=== PATIENT | female | born 1995 | race African-American/Black ===

== ENCOUNTER 2021-12-29 10:52 | Emergency (ER) | payer SELFPAY ==
[~2021-12-29] VITALS: Ht 162.6 cm; Wt 119.0 kg
[2021-12-29] MEDS ORDERED: CLOT1CRE56 TOP (11:29)
[2021-12-29 12:08] VITALS: BP 112/76
== END 2021-12-29 12:11 | disposition home or self-care (01) ==
LOC: ER 10:52
DX: B36.9 Superficial mycosis, unspecified (principal)

== ENCOUNTER 2023-08-10 20:28 | Emergency (ER) | payer MEDICAID, OTHER ==
[~2023-08-10] VITALS: Ht 160 cm; Wt 127.0 kg
[~2023-08-10 20:28] MED LIST: CLOT1CRE56 TOP
[2023-08-10 23:33] LABS: Basophils # (auto) 0 10 ^3/uL (0-0.2); Basophils % (auto) 0.4 % (0.0-2.0); Eosinophils # (auto) 0 10 ^3/uL (0-0.8); Eosinophils % (auto) 0.2 % (0.0-7.0); Hematocrit 40.3 % (36.0-46.0); Hemoglobin 13.5 g/dL (12.2-16.2); Lymphocytes # (auto) 1.4 10 ^3/uL (0.4-5.4); Lymphocytes % (auto) 13.1 % (10.0-50.0); Mean Corpuscular Hgb Conc. 33.5 g/dL (32.0-36.0); Mean Corpuscular Volume 80.6 fL (80.0-100.0); Monocytes # (auto) 0.2 10 ^3/uL (0-1.3); Neutrophils # (auto) 8.7 10 ^3/uL (1.6-8.6); Neutrophils % (auto) 84.3 % (37.0-80.0); Nucleated Red Blood Cells % 0.1 %; Red Blood Cells 4.99 10^6/uL (4.0-5.20); Red Cell Distribution Width 14.6 % (11.8-14.3); White Blood Cell 10.4 10^3/uL (4.4-10.8)
[2023-08-10 23:47] LABS: Alanine Aminotransferase 19 U/L (7-40); Alkaline Phosphatase 98 U/L (46-116); Anion Gap 13 (5-15); Aspartate Aminotransferase 14 U/L (13-40); Bilirubin, Total 0.4 mg/dL (0.2-1.0); Blood Urea Nitrogen 6 mg/dL (9-23); Calcium 10.2 mg/dL (8.7-10.4); Carbon Dioxide 18 mmol/L (20-30); Chloride 109 mmol/L (98-107); Glucose 137 mg/dL (74-106); Lipase 38 U/L (12-53); Potassium 3.8 mmol/L (3.5-5.1); Sodium 140 mmol/L (136-145); Total Protein 8.6 g/dL (5.7-8.2)
[2023-08-11 00:32] VITALS: TEMP 97.5
[2023-08-11] MEDS ORDERED: ZOFR4T PO (00:32)
[2023-08-11] MEDS: MORPHINE SULFATE 4 MG/ML SYR/VIAL IM ONE (00:50)
[2023-08-11] MEDS: ONDANSETRON ODT 4 MG TAB PO ONE (00:50)
[2023-08-11 01:07] VITALS: O2SAT 100
[2023-08-11 01:46] VITALS: BP 151/63; PULSE 63; RESP 20
== END 2023-08-11 01:50 | disposition home or self-care (01) ==
LOC: EDBD 20:28 → ER 20:28
DX: R10.12 Left upper quadrant pain (principal); R10.2 Pelvic and perineal pain; R11.2 Nausea with vomiting, unspecified
CPT/HCPCS: 36415; 74176; 80053; 83690; 84702; 85025; 96372; 99285; J2270; Q0162